=== PATIENT | male | born 1950 | race American Indian/Alaskan Native ===

== ENCOUNTER 2016-07-05 17:59 | Inpatient (IN) | payer MEDICARE ==
--- NOTE | 2016-07-05 20:54 | Emergency Department Report ---
ED General Adult HPI - General Chief complaint: Medical Clearance Stated complaint: SICK Time Seen by Provider: 07/05/16 20:43 Source: patient, family, EMS (ems notes not available at time of chart dictation), RN notes reviewed Mode of arrival: Stretcher Limitations: Physical Limitation, Other (patient is a poor historian) - History of Present Illness Initial comments: This is a 66-year-old male, previously unknown to me. The patient is a very poor historian. He has a past medical history of stroke, heart attack, hypertension, ventricular pacer. To me, the patient complains of abdominal pain. He describes it as "all over." He cannot describe exacerbating or relieving factors. He cannot to me why he came to the hospital today, and he does not know who called 911. He denied headache and neck pain as well as chest pain or shortness of breath. He denied imitative all other obstructive urinary symptoms. History is also obtained by speaking to the patient's daughter, Ms. Gricel Bai; [phone]. She states that the patient appeared weak today. She reports that the patient complained of right hand tingling which has since resolved. She also describes that the patient was dizzy. She cannot further describe the dizziness, states the patient did not lose consciousness or pass out, but does state that the patient appeared to be walking to the left and appeared to be slightly unsteady. This has been present since 10:00 in the morning. She reports no recent medication changes. -: Gradual Location: abdomen, right, upper extremity Severity scale (0 -10): 0 Consistency: intermittent Improves with: none Worsens with: none Associated Symptoms: malaise, weakness - Related Data Allergies Allergy/AdvReac Type Severity Reaction Status Date / Time No Known Allergies Allergy Unverified 07/05/16 18:51 ED Review of Systems ROS: Stated complaint: SICK Other details as noted in HPI Constitutional: malaise, weakness Respiratory: see HPI Cardiovascular: as per HPI Gastrointestinal: abdominal pain Genitourinary: as per HPI Musculoskeletal: as per HPI Skin: as per HPI Neurological: as per HPI Psychiatric: as per HPI Hematological/Lymphatic: as per HPI ED Past Medical Hx - Past Medical History Previous Medical History?: Yes Hx Hypertension: Yes Hx CVA: Yes (X3) Hx Heart Attack/AMI: Yes - Surgical History Past Surgical History?: No - Social History Smoking Status: Never Smoker Substance Use Type: None ED Physical Exam - General Limitations: Language Barrier, Altered Mental Status, Other (she is a poor historian, has difficulty with open-ended and close and the questions.) General appearance: alert, in no apparent distress - Head Head exam: Present: atraumatic, normocephalic, other (left anterior superficial scalp demonstrates chronic lesions.) - Eye Eye exam: Present: normal appearance, EOMI. Absent: nystagmus - ENT ENT exam: Present: normal exam, normal orophraynx, mucous membranes moist - Neck Neck exam: Present: normal inspection, full ROM. Absent: tenderness, meningismus - Respiratory Respiratory exam: Present: normal lung sounds bilaterally. Absent: respiratory distress, wheezes, rales, rhonchi, stridor, chest wall tenderness - Cardiovascular Cardiovascular Exam: Present: regular rate, normal rhythm, normal heart sounds. Absent: bradycardia, tachycardia, irregular rhythm, systolic murmur, diastolic murmur, rubs, gallop - GI/Abdominal GI/Abdominal exam: Present: soft, tenderness, normal bowel sounds. Absent: distended, guarding, rebound, rigid, pulsatile mass - Rectal Rectal exam: Present: deferred - Extremities Exam Extremities exam: Present: normal inspection, normal capillary refill, other ( there is 5/5 strength right upper extremity, right lower extremity. There is 4/ 5 strength left upper extremity, left lower extremity. As per daughter, this is chronic.). Absent: full ROM, tenderness, pedal edema, joint swelling, calf tenderness - Back Exam Back exam: Present: normal inspection, full ROM. Absent: tenderness, CVA tenderness (R), CVA tenderness (L), muscle spasm, paraspinal tenderness, vertebral tenderness - Neurological Exam Neurological exam: Present: altered, motor sensory deficit - Psychiatric Psychiatric exam: Present: normal affect, normal mood - Skin Skin exam: Present: warm, dry, intact, normal color. Absent: rash ED Course Vital Signs 07/05/16 07/05/16 07/05/16 18:45 20:32 20:33 Temperature 98.4 F 98 F Pulse Rate 93 H 89 Respiratory 16 12 12 Rate Blood Pressure 113/67 Blood Pressure 121/64 [Left] O2 Sat by Pulse 97 98 98 Oximetry 07/05/16 21:35 Temperature 97.9 F Pulse Rate Respiratory Rate Blood Pressure Blood Pressure [Left] O2 Sat by Pulse Oximetry - Reevaluation(s) Reevaluation #1: 07/05/16 22:09 Differential diagnosis: Arrhythmia, acute coronary syndrome, structural cardiac disease, transient ischemic attack, subacute stroke, pneumonia, urinary tract infection, diverticulitis, colitis, urinary tract infection Assessment and plan: 66-year-old male sent to the ER for right hand tingling, reported unsteady gait. Symptoms started at 10:00 in the morning. Therefore not a TPA candidate. Objectively on my exam he is somewhat tender, and complains of abdominal pain. Noncontrast CT scan of the head is pending, CT scan of the abdomen and pelvis is pending, x-ray chest, laboratory studies are pending. Reevaluation #2: 07/06/16 01:39 CT scan of the brain negative for acute disease. Chronic changes are noted. X-ray of the chest demonstrates median sternotomy, AICD, no acute disease. CT scan of the abdomen and pelvis demonstrates multiple findings, ileus versus SBO, nonspecific groundglass opacities in the bibasilar lungs, pneumonitis is suggested, possible constipation, perinephric stranding, dilated loops of small bowel. Obstruction is not excluded. Given patient's poor history as tenderness, reported history of unsteady gait, clinical and reviewed, he will be admitted. Antibiotics, blood cultures ordered. Aspirin ordered. Case is discussed with the Hospital physician, , who accepts the patient to his service. ED Medical Decision Making - Lab Data Result diagrams: 07/05/16 21:10 07/05/16 21:10 Vital Signs 07/05/16 07/05/16 07/05/16 18:45 20:32 20:33 Temperature 98.4 F 98 F Pulse Rate 93 H 89 Respiratory 16 12 12 Rate Blood Pressure 113/67 Blood Pressure 121/64 [Left] O2 Sat by Pulse 97 98 98 Oximetry 07/05/16 21:35 Temperature 97.9 F Pulse Rate Respiratory Rate Blood Pressure Blood Pressure [Left] O2 Sat by Pulse Oximetry Lab Results 07/05/16 07/05/16 07/05/16 Range/Units 21:10 21:10 21:22 WBC 5.6 (4.5-11.0) K/mm3 RBC 4.92 (3.65-5.03) M/mm3 Hgb 14.0 (11.8-15.2) gm/dl Hct 42.1 (35.5-45.6) % MCV 86 (84-94) fl MCH 29 (28-32) pg MCHC 33 (32-34) % RDW 13.6 (13.2-15.2) % Plt Count 215 (140-440) K/mm3 Lymph % (Auto) 21.6 (13.4-35.0) % [place] % (Auto) 6.4 (0.0-7.3) % Eos % (Auto) 1.5 (0.0-4.3) % Baso % (Auto) 0.9 (0.0-1.8) % Lymph # 1.2 (1.2-5.4) K/mm3 [place] # 0.4 (0.0-0.8) K/mm3 Eos # 0.1 (0.0-0.4) K/mm3 Baso # 0.1 (0.0-0.1) K/mm3 Seg Neutrophils % 69.6 (40.0-70.0) % Seg Neutrophils # 3.9 (1.8-7.7) K/mm3 PT 12.6 (12.2-14.9) Sec. INR 0.95 (0.87-1.13) Urine Color Straw (Yellow) Urine Turbidity Clear (Clear) Urine pH 6.0 (5.0-7.0) Ur Specific [place] 1.032 H (1.003-1.030) Urine Protein <15 mg/dl (Negative) mg/dL Urine Glucose (UA) >=500 (Negative) mg/dL Urine Ketones 20 (Negative) mg/dL Urine Blood Neg (Negative) Urine Nitrite Neg (Negative) Urine Bilirubin Neg (Negative) Urine Urobilinogen 2.0 (<2.0) mg/dL Ur Leukocyte Esterase Neg (Negative) Urine WBC (Auto) < 1.0 (0.0-6.0) /HPF Urine RBC (Auto) < 1.0 (0.0-6.0) /HPF - EKG Data When compared to previous EKG there are: previous EKG unavailable 07/05/16 22:10 Ventricular paced, left axis deviation, QTC 514 ms, good capture, abnormal EKG, not morphologically consistent with STEMI, there is no chest pain, no prior EKGs available. - Radiology Data Radiology results: report reviewed, image reviewed CT scan of the brain negative for acute disease. Chronic changes are noted. X-ray of the chest demonstrates median sternotomy, AICD, no acute disease. CT scan of the abdomen and pelvis demonstrates multiple findings, ileus versus SBO, nonspecific groundglass opacities in the bibasilar lungs, pneumonitis is suggested, possible constipation, perinephric stranding, dilated loops of small bowel. Obstruction is not excluded. Critical care attestation.: If time is entered above; I have spent that time in minutes in the direct care of this critically ill patient, excluding procedure time. ED Disposition Clinical Impression: Weakness, Abdominal pain Disposition: OP ADMITTED IP TO THIS HOSP Is pt being admited?: Yes Does the pt Need Aspirin: Yes Condition: Good Referrals: PRIMARY CARE, [Primary Care Provider] - 3-5 Days
[2016-07-05 21:27] LABS: Basophils % (Auto) 0.9 % (0.0-1.8); Eosinophils % (Auto) 1.5 % (0.0-4.3); Hematocrit 42.1 % (35.5-45.6); Mean Corpuscular HGB Conc 33 % (32-34); Mean Corpuscular Hemoglobin 29 pg (28-32); Mean Corpuscular Volume 86 fl (84-94); Platelet Count 215 K/mm3 (140-440); Red Blood Count 4.92 M/mm3 (3.65-5.03); Red Cell Distribution Width 13.6 % (13.2-15.2); White Blood Count 5.6 K/mm3 (4.5-11.0)
[2016-07-05 21:36] LABS: INR 0.95 (0.87-1.13)
[2016-07-05 21:48] LABS: Bilirubin,Urine NEG (Negative); Blood,Urine NEG (Negative); Ketones,Urine 20 mg/dL (Negative); Leukocyte Esterase,Urine NEG (Negative); Nitrite,Urine NEG (Negative); Protein,Urine <15 mg/dL mg/dL (Negative); RBC,Urine < 1.0 /HPF (0.0-6.0); WBC,Urine < 1.0 /HPF (0.0-6.0)
[2016-07-05] MEDS ORDERED: NACL 0.9% 1000 ML 1,000 ML IV ONE (21:53)
[2016-07-05 22:29] LABS: Alanine Aminotransferase 16 units/L (7-56); Albumin 3.6 g/dL (3.9-5); Alkaline Phosphatase 74 units/L (35-129); Bilirubin,Total 0.3 mg/dL (0.1-1.2); Blood Urea Nitrogen 21 mg/dL (9-20); Calcium 9.1 mg/dL (8.4-10.2); Carbon Dioxide 25 mmol/L (22-30); Chloride 97.2 mmol/L (98-107); Glucose 324 mg/dL (75-100); Lipase 183 units/L (13-60); Potassium 4.1 mmol/L (3.6-5.0); Sodium 136 mmol/L (137-145); Total Protein 7.3 g/dL (6.3-8.2)
[2016-07-05 22:32] LABS: Anion Gap 18 mmol/L; Bilirubin,Direct < 0.2 mg/dL (0-0.2); Bilirubin,Indirect 0.1 mg/dL
[2016-07-05] MEDS ORDERED: NACL ONE (22:36)
--- NOTE | 2016-07-06 00:54 | Cat Scan Report ---
FINAL REPORT EXAM: CT HEAD/BRAIN WO CON HISTORY: right hand tingling, dizzy TECHNIQUE: CT scan of the brain without IV contrast. PRIORS: None FINDINGS: Moderate atrophy. Patchy areas of low density in the periventricular and subcortical white matter are nonspecific, but may relate to chronic small vessel ischemic change. No hemorrhage, mass, mass effect, or midline shift. Normal basal cisterns. No pathologic extra-axial fluid collection. No evidence of acute infarct. No skull fracture. IMPRESSION: 1. No acute intracranial finding. Suspect chronic ischemic changes.
--- NOTE | 2016-07-06 01:07 | Cat Scan Report ---
FINAL REPORT PROCEDURE: CT ABDOMEN PELVIS W CON TECHNIQUE: Computerized axial tomography of the abdomen and pelvis was performed after the IV injection of iodinated nonionic contrast. HISTORY: Abdominal pain. COMPARISON: No prior studies are available for comparison. FINDINGS: Visualized lower thorax: Biventricular pacer/ICD. Bibasilar ground-glass opacities. Liver: Punctate hepatic granulomas. Spleen: Normal size and attenuation. Gallbladder and biliary system: Normal. Pancreas: Normal. Adrenals: Normal. Kidneys: 5.5 millimeter area of low attenuation in the left kidney. Possible left renal calculi, the largest measuring 6 millimeters. Bilateral perinephric stranding. GI tract: Moderate stool. Normal appendix. Diverticulosis. Possible mild thickening of the distal stomach. Mildly and diffusely dilated loops of small bowel. More distal ilium decompressed. Lymph nodes and mesentery: Normal. Vasculature: Moderate atherosclerosis. Bladder: Mild bladder distension. Reproductive organs: Normal. Peritoneum: No free fluid. Musculoskeletal structures: Status post median sternotomy. Slight levoscoliosis. Mild osteopenia. Small multilevel anterior osteophytes. Healed 10th through 12th rib fractures. Other: Pelvic phleboliths. 6.5 x 2.2 centimeter lipoma of the subcutaneous mid back. IMPRESSION: Biventricular pacer/ICD. Bibasilar atelectasis or pneumonitis. Evidence of prior granulomatous disease. Gallstone. Low-attenuation left renal lesion likely cyst. Possible nonobstructing left renal calculus. Perinephric stranding likely senescent. Consider further evaluation as felt to be warranted clinically. Moderate stool. Consider constipation. Mildly dilated loops of small bowel, consider ileus or enteritis. More distal ilium decompressed, cannot exclude mild obstruction. Consider followup including radiographs if there is continued clinical concern. Mild gastric wall thickening, could be related to to degree of distention but consider gastritis. Atherosclerosis. Bladder distension. Lipoma of the subcutaneous mid back.
[2016-07-06] MEDS ORDERED: ROCEPHIN/NS 1 GM/50 ML 1 GM/50 ML BAG IV ONE ×2 (01:41→02:47)
[2016-07-06] MEDS ORDERED: BABY ASPIRIN PO ONE (01:43)
[2016-07-06] MEDS ORDERED: BABY ASPIRIN ONE (02:47)
[2016-07-06] MEDS ORDERED: TYLENOL PO PRN (03:47)
[2016-07-06] MEDS ORDERED: ZOFRAN IV PRN ×2 (03:47→03:49)
[2016-07-06] MEDS ORDERED: DULCOLAX PR PRN (03:47)
[2016-07-06] MEDS ORDERED: MILK OF MAGNESIA PO PRN (03:47)
--- NOTE | 2016-07-06 03:47 | Event Note ---
Date: 07/06/16 See Reports SBO-mild to moderate CVA with L Weakness HTN T2DM
[2016-07-06] MEDS: NACL 0.9% 1000 ML 1,000 ML IV SCH (04:56)
[2016-07-06] MEDS: PEPCID IV SCH (04:56)
[2016-07-06] MEDS: TORADOL IV SCH ×3 (06:05→18:06)
--- NOTE | 2016-07-06 07:27 | XRay Report ---
CHEST ONE VIEW INDICATION: Weakness. Evaluate for pneumonia. COMPARISON: None similar at this institution. FINDINGS: Portable, single, frontal chest radiograph demonstrates normal cardiomediastinal silhouette. Clear lungs. Unremarkable bones. Right tripolar AICD with dual-chamber leads. Post CABG changes. CONCLUSION: No acute disease in the chest. Thank you for the opportunity to participate in this patient's care.
--- NOTE | 2016-07-06 07:35 | Admit Criteria Form ---
Admission Criteria Documentation: ABDOMINAL PAIN Clinical Indications for Admission to Inpatient Care (Place 'X' for any and all applicable criteria): Admission is indicated for ANY ONE of the following(1)(2)(3)(4)(5): [X ]I. Inpatient admission required rather than observation care (Also use Abdominal Pain: Observation Care, as appropriate) because of ANY ONE of the following: [ ]a) Severe pain requiring acute inpatient management [ ]b) Identification of etiology/finding that requires inpatient care (eg, aortic dissection, free air) [ ]c) Absent bowel sounds with complete ileus(6) [ ]d) Suspected toxic megacolon [ ]e) Severe electrolyte abnormalities requiring inpatient care [ ]f) High fever or infection requiring inpatient admission as indicated by ANY ONE of following(7)(8): [ ] i) Appropriate outpatient or observational care antimicrobial treatment unavailable, not effective, or not feasible [ ] ii) Documented bacteremia [ ] iii) Temperature > 104.9 degrees F (oral) [ ] iv) T >103.1 F (oral) or < 96.8 F(rectal) that does not respond to all emergency treatment measures [X ]g) Signs of intestinal obstruction [B] [ ]h) Hemodynamic instability [ ]i) IV fluid to replace significant ongoing losses (greater than 3 L/m2 per day) (12)(13) [ ]j) Percutaneous or open drainage (eg, abscess, biliary tract ) procedures [ ]k) Parenteral nutrition regimen that must be implemented on inpatient basis [ ]l) Other condition,treatment or monitoring requiring inpatient admission. [ ]II. Peritoneal signs present [ ]III. Surgery needed that cannot be performed on an ambulatory basis. [ ]IV. Evaluation requires patient to not eat or drink for extended period ( eg, more than 24 hours). [ ]V. Contraindications and/or Inappropriate clinical situations for Observational Care in patients with abdominal pain, when ANY ONE of the following is required: [ ]a) Thorough evaluation is required to prevent catastrophic events due to delays in diagnosing (e.g.Mesenteric ischemia) 1,3 [ ]b) Patient with severe pathology or with chronic symptoms unlikely to improve in the ED stay (3) [ X]. General contraindications and/or Inappropriate clinical situations for Observational Care in patients with abdominal pain, when ANY ONE of the following is required: [X ]a) Prediction of prolongation of LOS based on ANY ONE of the following may be considered as a contraindication for observational care 2, 3, 4, 5, 6, 7, 8, 9, 10, 11 [X ]i) Age > 65 yrs. [ ]ii) Patient arriving by ambulance [ ]iii) Patient with high acuity [ ]iv) Patient requiring vital sign monitoring [ ]v) Patient on IV medication [ ]b) Systolic blood pressures 180mmHg 3,12 [ ]c) Patient with altered mental status including delirium and other alteration of consciousness, (3) [ ]d) Patient whose discharge disposition will be to a intermediate home or rehabilitation home should not be managed in Emergency Department Observation Unit. CMS rule requires 3 days hospital stay before such placement.3,13 [ ]e) Patient with failure to thrive due to broad array of etiologies 3,16,17 [ ]f) Inability to ambulate 3,14 Extended stay beyond goal length of stay may be needed for(2)(3): [ ]a) Persistent abdominal pain with suspected intra-abdominal process [ ]b) Diagnosed condition requiring continued stay (e.g., pancreatitis, complicated diverticulitis) [ ]c) Surgery (e.g., colectomy) The original [facility] content created by [employer] has been revised. The portions of the content which have been revised are identified through the use of italic text or in bold, and [facility] has neither reviewed nor approved the modified material.All other unmodified content is copyright [employer] [facility]. Please see references footnoted in the original [facility] edition 2016 Admission Criteria Met: Yes
--- NOTE | 2016-07-06 07:41 | History and Physical Report ---
CHIEF COMPLAINT: 1. Weakness. 2. Abdominal discomfort. HISTORY OF PRESENT ILLNESS: This 66-year-old -[place] male with history of cerebrovascular accident and left-sided weakness, comes in for feeling weak and also abdominal discomfort. Abdominal pain is about 5 on a scale of 1-10. The patient is a poor historian. Unable to give much history. No constipation or diarrhea. Nausea present. He cannot specifically tell me why he has come into the hospital other than left-sided abdominal discomfort and weakness. PAST MEDICAL HISTORY: Significant for cerebrovascular accident, hypertension, coronary artery disease and [place]. PAST SURGICAL HISTORY: None. SOCIAL HISTORY: Does not smoke. No alcohol, no recreational drugs. REVIEW OF SYSTEMS: CONSTITUTIONAL: No weight loss, no weight gain. The patient is a very poor historian. HEENT: Has a rash on the left forehead, which has been there for several years. No sore throat. NECK: No neck stiffness. CARDIOVASCULAR AND RESPIRATORY SYSTEM: No shortness of breath, no cough, no wheezing. No chest pain. GASTROINTESTINAL: Some nausea present. Abdominal discomfort present. GENITOURINARY: No dysuria, no flank pain. MUSCULOSKELETAL: No joint pains. Has weakness on the left side. CENTRAL NERVOUS SYSTEM: Significant for weakness of the left side. SKIN: Rash on the left forehead, which is chronic dermatitis for a long time. PHYSICAL EXAMINATION: GENERAL: Elderly male lying in bed comfortably. VITAL SIGNS: Temperature is 98.4, pulse is 93, respirations 16, blood pressure 113/67. HEENT: Left facial chronic skin lesions, hypopigmented and thick dermis from the mid left forehead present. Hyperpigmentation and scaling lesion present. HEENT: Otherwise unremarkable. NECK: No neck stiffness, neck pain. LUNGS: Clear to auscultation and percussion. Good air entry. CARDIOVASCULAR: S1, S2 heard. No gallop, no murmur, no rub. Apical impulse in left fifth intercostal space and midclavicular line. ABDOMEN: Soft and benign. No hepatosplenomegaly. No guarding, no rigidity. Hernial orifices are normal. EXTREMITIES: Good pedal pulses. No pedal edema. CENTRAL NERVOUS SYSTEM: Alert and oriented. Left-sided weakness present. Reflexes are brisk on the left side. He says the left-sided weakness has been there for the last 1 year. IMAGING STUDIES: CAT scan of the brain, negative for acute disease. X-ray of the chest demonstrated median sternotomy AICD. CT of the abdomen demonstrated ileus versus small bowel obstruction. Moderate stool present in the CAT scan. Mildly dilated loops of small bowel ileus or enteritis. More distal ileum decompressed. ASSESSMENT AND PLAN: 1. Ileus. I will keep him n.p.o. On the CAT scan, there are mildly dilated loops of small bowel. It may resolve spontaneously. Surgical consult requested by surgery . We will keep him n.p.o. until they clear him. IV famotidine started. IV fluids were started. 2. Cerebrovascular accident by history. Left-sided weakness present. Physical therapy to be involved. 3. Type 2 diabetes. Accu-Cheks and insulin coverage for the time being. The patient is not on any medications. 4. Coronary artery disease. The patient is not on any medications. He has history of AICD. Again, the patient is not on any medications. 5. Deep venous thrombosis prophylaxis, Lovenox 40 mg subcutaneous daily ordered. In summary, the active problem has been ileus/small-bowel obstruction and left-sided weakness and high blood sugars. Physical therapy ordered and also, dietary education for diabetes. JOB# [id number] JERROD/MARILYN
[2016-07-06] MEDS: NOVOLOG SUB-Q SCH ×4 (08:13→18:06)
--- NOTE | 2016-07-06 10:41 | Consultation ---
History of Present Illness Consult date: 07/06/16 Reason for consult: abdominal pain Requesting physician: ASHLEE ELDRIDGE Chief complaint: Weakness - History of present illness History of present illness: This Is a 66-year-old male who I have been consulted for evaluation of abdominal pain. Currently the patient denies any abdominal pain. States that he came to the hospital for numbness and tingling on his left side. His last meal was yesterday. He denies any nausea, vomiting, diarrhea, constipation. He has no previous abdominal surgical history. CT scan of the abdomen showed evidence of mildly dilated bowel suggestive of ileus or enteritis but could not rule out the possibility of bowel obstruction. Surgery was consult at as a result. Past History Past Medical History: CAD, diabetes, hypertension Past Surgical History: CABG Social history: no significant social history (denies) Family history: no significant family history Medications and Allergies Allergies Allergy/AdvReac Type Severity Reaction Status Date / Time No Known Allergies Allergy Unverified 07/05/16 18:51 Active Meds: Active Medications Acetaminophen (Tylenol) 650 mg PO Q4H PRN PRN Reason: Pain MILD(1-3)/Fever >100.5/KRAUSE Bisacodyl (Dulcolax) 10 mg VT QDAY PRN PRN Reason: Constipation unrelieved by MOM Famotidine (Pepcid) 20 mg IV BID [facility] Last Admin: 07/06/16 04:56 Dose: 20 mg Sodium Chloride (Nacl 0.9% 1000 Ml) 1,000 mls @ 75 mls/hr IV DIRECT [facility] Last Admin: 07/06/16 04:56 Dose: 75 mls/hr Influenza Virus Vaccine Quadrival (Fluarix Quad [id number](36 Mos+)) 60 mcg IM .ONCE ONE Stop: 07/06/16 12:01 Insulin Aspart (Novolog) 0 units SUB-Q Q6HR DARBY PRN Reason: Protocol Last Admin: 07/06/16 08:13 Dose: 4 units Ketorolac Tromethamine (Toradol) 15 mg IV Q6HR [facility] Stop: 07/11/16 05:59 Last Admin: 07/06/16 06:05 Dose: Not Given Magnesium Hydroxide (Milk Of Magnesia) 30 ml PO Q4H PRN PRN Reason: Constipation Ondansetron HCl (Zofran) 4 mg IV Q3H PRN PRN Reason: Nausea And Vomiting Pneumococcal Polyvalent Vaccine (Pneumovax 23) 0.5 ml IM .ONCE ONE Stop: 07/06/16 12:01 Exam Vital Signs Temp Pulse Resp BP Pulse Ox 98.4 F 93 H 16 113/67 97 07/05/16 18:45 07/05/16 18:45 07/05/16 18:45 07/05/16 18:45 07/05/16 18:45 - General physical appearance Positive: well developed, well nourished, no distress - Respiratory Positive: normal expansion, normal respiratory effort - Cardiovascular Rhythm: regular - Abdomen Abdomen: Present: soft, bowel sounds normal. Absent: tender, distended, masses , rebound, guarding, surgical scars - Psychiatric Psychiatric: appropriate mood/affect Results - Labs 07/05/16 21:10 07/05/16 21:10 Abnormal lab results 07/06/16 07/06/16 Range/Units 05:46 08:09 POC Glucose 252 H 253 H (70-105) - Imaging CT scan - abdomen: report reviewed, image reviewed Assessment and Plan Abdominal pain-this is likely due to his constipation. Per his medications and appears he's been dealing with this problem for some time. There is a extremely low possibility of a bowel obstruction given the fact that he does not have a history of abdominal surgery. As the patient currently appears to be asymptomatic, no surgical intervention is warranted at this time. If his symptoms recur, I recommend a GI evaluation. Continue workup for his left- sided weakness and numbness and tingling. Continue supportive care. Okay from a surgical standpoint started diet. We'll sign off. Please call for any questions.
[2016-07-06] MEDS ORDERED: PNEUMOVAX 23 IM ONE (12:00)
[2016-07-06] MEDS ORDERED: FLUARIX QUAD 2016-2017(36 MOS+) IM ONE (12:00)
[2016-07-07] MEDS: NACL 0.9% 1000 ML 1,000 ML IV SCH ×2 (00:53→15:35)
[2016-07-07] MEDS: PEPCID IV SCH ×2 (00:54→10:44)
[2016-07-07] MEDS: TORADOL IV SCH ×4 (00:54→18:44)
[2016-07-07] MEDS: NOVOLOG SUB-Q SCH ×4 (00:56→19:06)
[2016-07-07] MEDS ORDERED: PERCOCET 5/325 ONE (03:10)
[2016-07-07 06:02] LABS: Basophils % (Auto) 0.8 % (0.0-1.8); Eosinophils % (Auto) 1.9 % (0.0-4.3); Hematocrit 37.7 % (35.5-45.6); Hemoglobin 12.5 gm/dl (11.8-15.2); Mean Corpuscular HGB Conc 33 % (32-34); Mean Corpuscular Hemoglobin 29 pg (28-32); Mean Corpuscular Volume 86 fl (84-94); Platelet Count 194 K/mm3 (140-440); Red Blood Count 4.38 M/mm3 (3.65-5.03); Red Cell Distribution Width 13.9 % (13.2-15.2); White Blood Count 5.3 K/mm3 (4.5-11.0)
[2016-07-07 07:03] LABS: Alanine Aminotransferase 9 units/L (7-56); Albumin 3.1 g/dL (3.9-5); Albumin/Globulin Ratio 1.1 %; Alkaline Phosphatase 62 units/L (35-129); BUN/Creatinine Ratio 17.14; Bilirubin,Total 0.4 mg/dL (0.1-1.2); Blood Urea Nitrogen 12 mg/dL (9-20); Calcium 8.4 mg/dL (8.4-10.2); Carbon Dioxide 29 mmol/L (22-30); Glucose 256 mg/dL (75-100); Total Protein 5.9 g/dL (6.3-8.2)
[2016-07-07 07:04] LABS: Chloride 100.5 mmol/L (98-107); Potassium 3.9 mmol/L (3.6-5.0); Sodium 139 mmol/L (137-145)
[2016-07-07 07:08] LABS: Anion Gap 13 mmol/L
--- NOTE | 2016-07-07 18:09 | Progress Note ---
Assessment and Plan Assessment and plan: 1. Ileus/? SBO Suspected based on CT findings, but most likely he has severe constipation Evaluated by surgery and no intervention warranted Will increase bowel regimen 2. Pancreatitis Abdominal pain has resolved Continue IV fluids and pain control medications as needed Trend lipase 3. CAD Status post CABG Home medications unknown Start beta lupe and SARI inhibitor along with aspirin and statin 4. Hypertension Starting beta lupe and SARI inhibitor Monitor BP and adjust regimen is needed 5. Diabetes Accu-Cheks and SSI 6. DVT prophylaxis History Interval history: doing well, no abdominal pain, no nausea or vomiting; no bowel movement, but passing gas Hospitalist Physical - Constitutional Vitals: Temp Pulse Resp BP Pulse Ox 98.3 F 84 20 128/78 99 07/07/16 15:40 07/07/16 15:40 07/07/16 15:40 07/07/16 15:40 07/07/16 07:25 General appearance: Present: no acute distress - EENT Eyes: Present: PERRL, EOM intact - Neck Neck: Present: supple, normal ROM. Absent: masses or JVD - Respiratory Respiratory effort: normal Respiratory: bilateral: CTA, negative: rales, rhonchi, wheezing - Cardiovascular Rhythm: regular Heart Sounds: Present: S1 & S2. Absent: systolic murmur - Extremities Extremities: no ischemia - Abdominal General gastrointestinal: soft, non-tender, non-distended, normal bowel sounds - Neurologic Neurologic: no focal deficits Results - Labs CBC & Chem 7: 07/07/16 05:26 07/07/16 05:26 Labs: Laboratory Last Values WBC 5.3 K/mm3 (4.5-11.0) 07/07/16 05:26 RBC 4.38 M/mm3 (3.65-5.03) 07/07/16 05:26 Hgb 12.5 gm/dl (11.8-15.2) 07/07/16 05:26 Hct 37.7 % (35.5-45.6) 07/07/16 05:26 MCV 86 fl (84-94) 07/07/16 05:26 MCH 29 pg (28-32) 07/07/16 05:26 MCHC 33 % (32-34) 07/07/16 05:26 RDW 13.9 % (13.2-15.2) 07/07/16 05:26 Plt Count 194 K/mm3 (140-440) 07/07/16 05:26 Lymph % (Auto) 17.6 % (13.4-35.0) 07/07/16 05:26 [place] % (Auto) 6.8 % (0.0-7.3) 07/07/16 05:26 Eos % (Auto) 1.9 % (0.0-4.3) 07/07/16 05:26 Baso % (Auto) 0.8 % (0.0-1.8) 07/07/16 05:26 Lymph # 0.9 K/mm3 (1.2-5.4) L 07/07/16 05:26 [place] # 0.4 K/mm3 (0.0-0.8) 07/07/16 05:26 Eos # 0.1 K/mm3 (0.0-0.4) 07/07/16 05:26 Baso # 0.0 K/mm3 (0.0-0.1) 07/07/16 05:26 Seg Neutrophils % 72.9 % (40.0-70.0) H 07/07/16 05:26 Seg Neutrophils # 3.8 K/mm3 (1.8-7.7) 07/07/16 05:26 PT 12.6 Sec. (12.2-14.9) 07/05/16 21:10 INR 0.95 (0.87-1.13) 07/05/16 21:10 Sodium 139 mmol/L (137-145) 07/07/16 05:26 Potassium 3.9 mmol/L (3.6-5.0) 07/07/16 05:26 Chloride 100.5 mmol/L (98-107) 07/07/16 05:26 Carbon Dioxide 29 mmol/L (22-30) 07/07/16 05:26 Anion Gap 13 mmol/L 07/07/16 05:26 BUN 12 mg/dL (9-20) 07/07/16 05:26 Creatinine 0.7 mg/dL (0.8-1.5) L 07/07/16 05:26 Estimated GFR > 60 ml/min 07/07/16 05:26 BUN/Creatinine Ratio 17.14 % 07/07/16 05:26 Glucose 256 mg/dL (75-100) H 07/07/16 05:26 POC Glucose 217 (70-105) H 07/07/16 16:34 Lactic Acid 1.0 mmol/L (0.7-2.0) 07/06/16 02:46 Calcium 8.4 mg/dL (8.4-10.2) 07/07/16 05:26 Total Bilirubin 0.4 mg/dL (0.1-1.2) 07/07/16 05:26 Direct Bilirubin < 0.2 mg/dL (0-0.2) 07/05/16 21:10 Indirect Bilirubin 0.1 mg/dL 07/05/16 21:10 AST 13 units/L (5-40) 07/07/16 05:26 ALT 9 units/L (7-56) 07/07/16 05:26 Alkaline Phosphatase 62 units/L (35-129) 07/07/16 05:26 Troponin T < 0.010 ng/mL (0.00-0.029) 07/05/16 21:10 Total Protein 5.9 g/dL (6.3-8.2) L 07/07/16 05:26 Albumin 3.1 g/dL (3.9-5) L 07/07/16 05:26 Albumin/Globulin Ratio 1.1 % 07/07/16 05:26 Lipase 183 units/L (13-60) H 07/05/16 21:10 Urine Color Straw (Yellow) 07/05/16 21:22 Urine Turbidity Clear (Clear) 07/05/16 21:22 Urine pH 6.0 (5.0-7.0) 07/05/16 21:22 Ur Specific [place] 1.032 (1.003-1.030) H 07/05/16 21:22 Urine Protein <15 mg/dl mg/dL (Negative) 07/05/16 21:22 Urine Glucose (UA) >=500 mg/dL (Negative) 07/05/16 21:22 Urine Ketones 20 mg/dL (Negative) 07/05/16 21:22 Urine Blood Neg (Negative) 07/05/16 21:22 Urine Nitrite Neg (Negative) 07/05/16 21:22 Urine Bilirubin Neg (Negative) 07/05/16 21:22 Urine Urobilinogen 2.0 mg/dL (<2.0) 07/05/16 21:22 Ur Leukocyte Esterase Neg (Negative) 07/05/16 21:22 Urine WBC (Auto) < 1.0 /HPF (0.0-6.0) 07/05/16 21:22 Urine RBC (Auto) < 1.0 /HPF (0.0-6.0) 07/05/16 21:22 - Imaging and Cardiology CT scan - abdomen: report reviewed (ranted dilated bowel ) CT Scan - head: report reviewed (no acute abnormality; chronic ischemic changes)
[2016-07-08] MEDS: NOVOLOG SUB-Q SCH ×4 (01:11→18:48)
[2016-07-08] MEDS: TORADOL IV SCH ×4 (01:12→18:24)
[2016-07-08] MEDS: PEPCID IV SCH ×3 (01:12→23:05)
[2016-07-08] MEDS: NACL 0.9% 1000 ML 1,000 ML IV SCH ×2 (07:01→19:55)
--- NOTE | 2016-07-08 16:05 | Progress Note ---
Assessment and Plan Assessment and plan: 1. Ileus/? SBO Suspected based on CT findings, but most likely he has severe constipation Evaluated by surgery and no intervention warranted Bowel regimen increased and had BM 2. Pancreatitis Abdominal pain has resolved Continue IV fluids and pain control medications as needed Recheck lipase in am 3. CAD Status post CABG Home medications unknown Started on beta lupe and SARI inhibitor along with aspirin and statin 4. Hypertension Started on beta lupe and SARI inhibitor Monitor BP 5. Diabetes Accu-Cheks and SSI 6. DVT prophylaxis History Interval history: doing well, no abdominal pain, no nausea or vomiting; had a bowel movement Hospitalist Physical - Constitutional Vitals: Temp Pulse Resp BP Pulse Ox 98.6 F 81 18 116/66 100 07/08/16 08:45 07/08/16 08:45 07/08/16 08:45 07/08/16 08:45 07/08/16 00:00 General appearance: Present: no acute distress - Neck Neck: Present: supple. Absent: enlarged thyroid, masses or JVD - Respiratory Respiratory effort: normal Respiratory: bilateral: CTA, negative: rales, rhonchi, wheezing - Cardiovascular Rhythm: regular Heart Sounds: Present: S1 & S2. Absent: systolic murmur - Extremities Extremities: no ischemia - Abdominal General gastrointestinal: soft, non-tender, non-distended, normal bowel sounds - Integumentary Integumentary: Present: warm, dry. Absent: jaundice, rash - Neurologic Neurologic: CNII-XII intact, no focal deficits Results - Labs CBC & Chem 7: 07/07/16 05:26 07/07/16 05:26 Labs: Laboratory Last Values WBC 5.3 K/mm3 (4.5-11.0) 07/07/16 05:26 RBC 4.38 M/mm3 (3.65-5.03) 07/07/16 05:26 Hgb 12.5 gm/dl (11.8-15.2) 07/07/16 05:26 Hct 37.7 % (35.5-45.6) 07/07/16 05:26 MCV 86 fl (84-94) 07/07/16 05:26 MCH 29 pg (28-32) 07/07/16 05:26 MCHC 33 % (32-34) 07/07/16 05:26 RDW 13.9 % (13.2-15.2) 07/07/16 05:26 Plt Count 194 K/mm3 (140-440) 07/07/16 05:26 Lymph % (Auto) 17.6 % (13.4-35.0) 07/07/16 05:26 [place] % (Auto) 6.8 % (0.0-7.3) 07/07/16 05:26 Eos % (Auto) 1.9 % (0.0-4.3) 07/07/16 05:26 Baso % (Auto) 0.8 % (0.0-1.8) 07/07/16 05:26 Lymph # 0.9 K/mm3 (1.2-5.4) L 07/07/16 05:26 [place] # 0.4 K/mm3 (0.0-0.8) 07/07/16 05:26 Eos # 0.1 K/mm3 (0.0-0.4) 07/07/16 05:26 Baso # 0.0 K/mm3 (0.0-0.1) 07/07/16 05:26 Seg Neutrophils % 72.9 % (40.0-70.0) H 07/07/16 05:26 Seg Neutrophils # 3.8 K/mm3 (1.8-7.7) 07/07/16 05:26 PT 12.6 Sec. (12.2-14.9) 07/05/16 21:10 INR 0.95 (0.87-1.13) 07/05/16 21:10 Sodium 139 mmol/L (137-145) 07/07/16 05:26 Potassium 3.9 mmol/L (3.6-5.0) 07/07/16 05:26 Chloride 100.5 mmol/L (98-107) 07/07/16 05:26 Carbon Dioxide 29 mmol/L (22-30) 07/07/16 05:26 Anion Gap 13 mmol/L 07/07/16 05:26 BUN 12 mg/dL (9-20) 07/07/16 05:26 Creatinine 0.7 mg/dL (0.8-1.5) L 07/07/16 05:26 Estimated GFR > 60 ml/min 07/07/16 05:26 BUN/Creatinine Ratio 17.14 % 07/07/16 05:26 Glucose 256 mg/dL (75-100) H 07/07/16 05:26 POC Glucose 207 (70-105) H 07/08/16 05:52 Lactic Acid 1.0 mmol/L (0.7-2.0) 07/06/16 02:46 Calcium 8.4 mg/dL (8.4-10.2) 07/07/16 05:26 Total Bilirubin 0.4 mg/dL (0.1-1.2) 07/07/16 05:26 Direct Bilirubin < 0.2 mg/dL (0-0.2) 07/05/16 21:10 Indirect Bilirubin 0.1 mg/dL 07/05/16 21:10 AST 13 units/L (5-40) 07/07/16 05:26 ALT 9 units/L (7-56) 07/07/16 05:26 Alkaline Phosphatase 62 units/L (35-129) 07/07/16 05:26 Troponin T < 0.010 ng/mL (0.00-0.029) 07/05/16 21:10 Total Protein 5.9 g/dL (6.3-8.2) L 07/07/16 05:26 Albumin 3.1 g/dL (3.9-5) L 07/07/16 05:26 Albumin/Globulin Ratio 1.1 % 07/07/16 05:26 Lipase 183 units/L (13-60) H 07/05/16 21:10 Urine Color Straw (Yellow) 07/05/16 21:22 Urine Turbidity Clear (Clear) 07/05/16 21:22 Urine pH 6.0 (5.0-7.0) 07/05/16 21:22 Ur Specific [place] 1.032 (1.003-1.030) H 07/05/16 21:22 Urine Protein <15 mg/dl mg/dL (Negative) 07/05/16 21:22 Urine Glucose (UA) >=500 mg/dL (Negative) 07/05/16 21:22 Urine Ketones 20 mg/dL (Negative) 07/05/16 21:22 Urine Blood Neg (Negative) 07/05/16 21:22 Urine Nitrite Neg (Negative) 07/05/16 21:22 Urine Bilirubin Neg (Negative) 07/05/16 21:22 Urine Urobilinogen 2.0 mg/dL (<2.0) 07/05/16 21:22 Ur Leukocyte Esterase Neg (Negative) 07/05/16 21:22 Urine WBC (Auto) < 1.0 /HPF (0.0-6.0) 07/05/16 21: Urine RBC (Auto) < 1.0 /HPF (0.0-6.0) 07/05/16 21:22
[2016-07-09] MEDS: NOVOLOG SUB-Q SCH ×4 (00:28→23:24)
[2016-07-09] MEDS: TORADOL IV SCH ×3 (00:37→12:54)
[2016-07-09] MEDS: PEPCID IV SCH ×2 (09:01→23:25)
--- NOTE | 2016-07-09 13:51 | Discharge Summary ---
Providers - Providers Date of Admission: 07/06/16 01:42 Date of discharge: 07/09/16 Attending physician: LAVERNE NESBITT 07/06/16 03:47 Consult to Physician [CONS] Routine Consulting Provider: MARCUS ALVAREZ Reason For Exam: Ileus/SBO Place consult to:: DR. ALVAREZ Notified:: OFFICE Phone number called:: [phone] Was contact made?: Yes If yes, spoke with:: NEYMAR Time called:: 09:31 Comment:: LUIS NOTIFIED 07/06/16 04:03 Physical Therapy Evaluation and Treat [CONS] Routine Comment: Reason For Exam: L side weakness Primary care physician: [employer] Hospitalization Reason for admission: abdominal discomfort Condition: Good Pertinent studies: CT abd/pelvis CT head CXR Hospital course: Lissy&Conrado is a 66 year old -[place]i male with a prior CVA with residual left- sided weakness, coronary artery disease, hypertension, diabetes who presented to the hospital complaining of abdominal discomfort. Small bowel obstruction was suspected based on CT findings, but not confirmed. Surgery consulted and no intervention needed. His symptoms were most likely secondary to severe constipation and pancreatitis. He received IV fluids and bowel regimen was increased. He improved and his symptoms resolved completely. Stable for discharge and follow-up with PCP. Discharge diagnosis: 1. Ileus/constipation SBO suspected on admission based on CT findings, but most likely symptoms due to severe constipation Evaluated by surgery and no intervention warranted Bowel regimen increased and had BM 2. Pancreatitis Received ivf and pain control medication Abdominal pain has resolved, lipase mormalized 3. CAD Status post CABG Home medications unknown Started on beta lupe and SARI inhibitor along with aspirin and statin 4. Hypertension Started on beta lupe and SARI inhibitor BP controlled 5. Diabetes Accu-Cheks and SSI Disposition: DISCHARGED TO HOME OR SELFCARE Time spent for discharge: 35 min Core Measure Documentation - Palliative Care Palliative Care/ Comfort Measures: Not Applicable - Core Measures Any of the following diagnoses?: none Exam - Physical Exam Narrative exam: Patient seen and examined: - Constitutional Vitals: Temp Pulse Resp BP Pulse Ox 98.1 F 90 20 121/70 100 07/09/16 08:04 07/09/16 08:04 07/09/16 08:04 07/09/16 08:04 07/09/16 08:04 General appearance: Present: no acute distress - EENT Eyes: Present: PERRL, EOM intact - Neck Neck: Present: supple, normal ROM. Absent: masses or JVD - Respiratory Respiratory effort: normal Respiratory: bilateral: CTA, negative: rales, rhonchi, wheezing - Cardiovascular Rhythm: regular Heart Sounds: Present: S1 & S2. Absent: systolic murmur - Extremities Extremities: no ischemia - Abdominal General gastrointestinal: Present: soft, non-tender, non-distended, normal bowel sounds - Psychiatric Psychiatric: cooperative - Neurologic Neurologic: moves all extremities, other (left-sided weakness) Plan Activity: advance as tolerated Diet: low cholesterol, low salt, diabetic Follow up with: PRIMARY CARE, [Primary Care Provider] - 3-5 Days Prescriptions: AtorvaSTATin [Lipitor] 10 mg PO QHS #30 tablet Aspirin EC [Aspirin Enteric Coated TAB] 81 mg PO QDAY #30 tablet. Bisacodyl [Dulcolax suppos] 10 mg ND QDAY PRN #20 supp.rect PRN Reason: Constipation unrelieved by MOM Docusate Sodium [Colace] 100 mg PO BID PRN #60 capsule PRN Reason: Constipation Lisinopril [Zestril TAB] 2.5 mg PO QDAY #30 tab Metoprolol Succinate 12.5 mg PO BID #30 tab.er.24h
[2016-07-10 09:17] VITALS: BP 110/60
== END 2016-07-10 09:30 | disposition home or self-care (01) | DRG 388 ==
LOC: ED 17:59 → 3A 07-06 01:42
PROVIDERS: ADMIT Internal Medicine; ATTEND Internal Medicine
DX: K56.7 Ileus, unspecified (principal); K85.90 Acute pancreatitis without necrosis or infection, unspecified; I69.354 Hemiplegia and hemiparesis following cerebral infarction affecting left non-dominant side; K59.00 Constipation, unspecified; K56.60 Unspecified intestinal obstruction; I10 Essential (primary) hypertension; E11.9 Type 2 diabetes mellitus without complications; I25.10 Atherosclerotic heart disease of native coronary artery without angina pectoris; I25.2 Old myocardial infarction; Z95.810 Presence of automatic (implantable) cardiac defibrillator; Z95.1 Presence of aortocoronary bypass graft
CPT/HCPCS: 36415; 51701; 70450; 71010; 74177; 80048; 80053; 80074; 81001; 82140; 82962; 83690; 84484; 85025; 85610; 87040; 90686; 90732; 93005; 93010; 96361; 96365; G8978-GP; G8979-GP; G8980-GP; J0696; J1815; J1885; J7030; Q9967